=== PATIENT | female | born 1960 | race Caucasian/White ===

== ENCOUNTER 2017-12-08 09:11 | Inpatient (IN) | payer OTHER ==
[2017-12-08 12:55] VITALS: BMI 22.1
--- NOTE | 2017-12-08 12:59 | HP ---
COWS - Scale Resting Pulse: 1= [place] 81-100 Sweatin= Chills/Flushing Restless Observation: 3= Extraneous Movement Pupil Size: 1= Pupils >than Normal Bone or Joint Aches: 2= Severe Diffuse Aches Runny Nose/ Eye Tearin= Nasal Congestion GI Upset > 30mins: 2= Nausea/Diarrhea Tremor Observation: 2= Slight Tremor Visible Yawning Observation: 1= 1-2x During Session Anxiety or Irritability: 2=Irritable/Anxious Goose Flesh Skin: 3=Piloerection COWS Score: 19 Admission ROS S - [facility] Chief Complaint: opiate withdrawal sx Allergies/Adverse Reactions: Allergies Allergy/AdvReac Type Severity Reaction Status Date / Time No Known Allergies Allergy Verified 12/08/17 12:55 History of Present Illness: 57 years old female with long history of opiate nicotine dependence has hypertension anxiety and depression migraine headache one black out no seizure is admitted to detox smoke once a while Exam Limitations: No Limitations - Ebola screening Have you traveled outside of the country in the last 21 days: No Have you had contact with anyone from an Ebola affected area: No Have you been sick,other than usual withdrawal symptoms: No Do you have a fever: No - Review of Systems Constitutional: Loss of Appetite, Changes in sleep, Unintentional Wgt. Loss, Unexplained wgt Loss EENT: reports: Blurred Vision Respiratory: reports: No Symptoms reported Cardiac: reports: No Symptoms Reported GI: reports: Nausea, Poor Appetite, Poor Fluid Intake, Abdominal cramping : reports: No Symptoms Reported Musculoskeletal: reports: Back Pain, Joint Pain, Muscle Pain, Neck Pain, Joint Stiffness Integumentary: reports: No Symptoms Reported Neuro: reports: Tremors Endocrine: reports: No Symptoms Reported Hematology: reports: No Symptoms Reported Psychiatric: reports: Judgement Intact, Orientated x3, Anxious, Depressed Other Systems: Reviewed and Negative Patient History - Patient Medical History Hx Anemia: No Hx Asthma: No Hx Chronic Obstructive Pulmonary Disease (COPD): No Hx Cancer: No Hx Cardiac Disorders: No Hx Congestive Heart Failure: No Hx Hypertension: Yes Hx Hypercholesterolemia: No Hx Pacemaker: No HX Cerebrovascular Accident: No Hx Seizures: No Hx Dementia: No Hx Diabetes: No Hx Gastrointestinal Disorders: No Hx Liver Disease: No Hx Genitourinary Disorders: No Hx Sexually Transmitted Disorders: No Hx Renal Disease (ESRD): No Hx Thyroid Disease: No Hx Human Immunodeficiency Virus (HIV): No Hx Hepatitis C: No Hx Depression: Yes Hx Suicide Attempt: No Hx Bipolar Disorder: No Hx Schizophrenia: No - Patient Surgical History Past Surgical History: No - PPD History Previous Implant?: Yes Documented Results: Negative w/o proof Implanted On Prior [facility] Admission?: No PPD to be Administered?: Yes - Reproductive History Patient is a Female of Child Bearing Age (11 -55 yrs old): No Last Menstrual Period: 12/09/11 Patient : No - Smoking Cessation Smoking history: Current some day smoker Have you smoked in the past 12 months: Yes Aproximately how many cigarettes per day: 1 Cigars Per Day: 0 Hx Chewing Tobacco Use: No Initiated information on smoking cessation: Yes 'Breaking Loose' booklet given: 12/08/17 - Substance & Tx. History Hx Alcohol Use: No Hx Substance Use: Yes Substance Use Type: Opiates, Tranquilizers Hx Substance Use Treatment: Yes (2017benadictin) - Substances Abused oxycodone Route: Oral Frequency: Daily Amount used: 40mg Age of first use: 50 Date of Last Use: 12/06/17 Family Disease History - Family Disease History Family Disease History: Other: Father (/alcohol), Mother () Admission Physical Exam S - Vital Signs Vital Signs: Vital Signs - 24 hr 12/08/17 12:53 Temperature 97.3 F L Pulse Rate 85 Respiratory 18 Rate Blood Pressure 143/95 - Physical General Appearance: Yes: Appropriately Dressed, Mild Distress, Thin, Tremorous, Irritable, Sweating, Anxious HEENTM: Yes: Hearing grossly Normal, Normocephalic, Normal Voice Respiratory: Yes: Chest Non-Tender, Lungs Clear, Normal Breath Sounds, No Respiratory Distress, No Accessory Muscle Use Neck: Yes: Supple, Trachea in good position Breast: Yes: Breasts Symetrical, No Discharge Cardiology: Yes: Regular Rhythm, Regular Rate, S1, S2 Abdominal: Yes: Non Tender, Flat, Soft Genitourinary: Yes: Within Normal Limits Back: Yes: Normal Inspection Musculoskeletal: Yes: full range of Motion, Gait Steady, Back pain, Joint swelling, Muscle Pain Extremities: Yes: Normal Inspection (iv from hospital saline 12/07/17), Normal Range of Motion, Non-Tender, Tremors Neurological: Yes: Fully Oriented, Alert, Motor Strength 5/5, Normal Response, Depressed Affect Integumentary: Yes: Normal Color, Dry, Warm Lymphatic: Yes: Within Normal Limits - Diagnostic (1) Opioid dependence with withdrawal Current Visit: Yes Status: Acute (2) Hypertension Current Visit: Yes Status: Chronic Qualifiers: Hypertension type: essential hypertension Qualified Code(s): I10 - Essential (primary) hypertension (3) Anxiety and depression Current Visit: Yes Status: Suspected Cleared for Admission [facility] - Detox or Rehab [facility] Level of Care: Medically Managed Detox Regimen/Protocol: Methadone [facility] Breath Alcohol Content Breath Alcohol Content: 0 Urine Pregancy Test - Result Urine Test Results: Negative- NO Line Present Urine Drug Screen - Results Drug Screen Negative: No Urine Drug Screen Results: OPI-Opiates, BAR-Barbiturates, BZO-Benzodiazepines, OXY-Oxycodone
[2017-12-08] MEDS ORDERED: LOPERAMIDE HCL 2 MG CAPSULE PO PRN (13:08)
[2017-12-08] MEDS ORDERED: ACETAMINOPHEN 325 MG TABLET (FP) PO PRN (13:08)
[2017-12-08] MEDS ORDERED: MAGNESIUM CITRATE 300 ML BOTTLE PO PRN (13:08)
[2017-12-08] MEDS ORDERED: MAG HYDROX/AL HYDROX/SIMETH 30 ML UNIT-DOSE CUP PO PRN (13:08)
[2017-12-08] MEDS ORDERED: hydrOXYzine PAMOATE 50 MG CAPSULE (FP) PO PRN (13:08)
[2017-12-08] MEDS ORDERED: MENTHOL/PHENOL 1 EACH UD MM PRN (13:08)
[2017-12-08] MEDS ORDERED: P-EPHED 60MG/TRIPROLIDI 2.5MG TABLET PO PRN (13:08)
[2017-12-08] MEDS ORDERED: MAGNESIUM HYDROX 2400MG/30ML ORAL SUSPENSION 30 ML CUP PO PRN (13:08)
[2017-12-08] MEDS ORDERED: guaiFENesin/D-METHORPHAN HB 10 ML UNIT-DOSE CUPS PO PRN (13:08)
[2017-12-08] MEDS ORDERED: NICOTINE POLACRILEX 2 MG GUM BUC PRN (13:17)
[2017-12-08] MEDS ORDERED: NICOTINE 14 MG/24 HOURS TOPICAL PATCH TD PRN (13:17)
[2017-12-08] MEDS ORDERED: METHADONE HCL 10 MG TABLET (FOR DETOX USE ONLY) PO ONE ×2 (13:50→23:00)
[2017-12-08] MEDS: diazePAM 5 MG TABLET PO PRN ×3 (14:28→22:37)
[2017-12-08] MEDS: BACLOFEN 10 MG TABLET (FP) PO PRN ×2 (14:28→22:40)
[2017-12-08] MEDS: cloNIDine HCL 0.1 MG TABLET PO PRN (17:35)
[2017-12-08] MEDS: THIAMINE HCL 100 MG TABLET (FP) PO SCH (22:37)
[2017-12-09] MEDS: diazePAM 5 MG TABLET PO PRN ×4 (02:27→22:38)
[2017-12-09] MEDS: BACLOFEN 10 MG TABLET (FP) PO PRN ×3 (05:53→22:36)
[2017-12-09] MEDS ORDERED: METHADONE HCL 10 MG TABLET (FOR DETOX USE ONLY) PO ONE (10:00)
[2017-12-09 10:18] LABS: HEMATOCRIT 33.4 % (32.4-45.2); HEMOGLOBIN 10.9 GM/dL (10.7-15.3); MCH 30.7 pg (25.7-33.7); MCHC 32.5 g/dl (32.0-36.0); MEAN CELL VOLUME 94.4 fl (80-96); MEAN PLT VOLUME 8.2 fl (7.5-11.1); PLATELET COUNT 419 K/MM3 (134-434); RBC 3.54 M/mm3 (3.60-5.2); RDW 15.8 % (11.6-15.6); WHITE BLOOD COUNT 8.3 K/mm3 (4.0-10.0)
[2017-12-09] MEDS: PRENATAL VITAMINS W/ FOLIC ACID TABLET (FP) PO SCH (10:28)
[2017-12-09 10:34] LABS: CHLORIDE 104 mmol/L (98-107); POTASSIUM 4.1 mmol/L (3.5-5.1); SODIUM 141 mmol/L (136-145)
[2017-12-09 11:09] LABS: ALBUMIN 3.1 g/dl (3.4-5.0); ALK PHOS 163 U/L (45-117); ANION GAP 12 MMOL/L (8-16); BILIRUBIN,TOTAL 0.2 mg/dL (0.2-1); BLOOD UREA NITROGEN 14 mg/dL (7-18); CO2 25 mmol/L (21-32); CREATININE 0.7 mg/dL (0.55-1.3); GLUCOSE,RANDOM 83 mg/dL (74-106); SGOT/AST 22 U/L (15-37); SGPT/ALT 26 U/L (13-61); TOT PROT 6.6 g/dl (6.4-8.2)
[2017-12-09 11:23] LABS: CALCIUM 7.9 mg/dL (8.5-10.1)
--- NOTE | 2017-12-09 11:29 | CONSULT ---
[facility] Psychiatric Consult - Data Date of interview: 12/09/17 Admission source: [facility] Identifying data: Patient is a 57 year old female, , without children, unemployed, domiciled, and supported by [facility]. This is patient's first admission to detox at [facility]. Pt. admitted to for opiate dependence. Substance Abuse History: - Smoking Cessation. Smoking history: Current some day smoker. Have you smoked in the past 12 months: Yes. Aproximately how many cigarettes per day: 1. Cigars Per Day: 0. Hx Chewing Tobacco Use: No. Initiated information on smoking cessation: Yes. 'Breaking Loose' booklet given : 12/08/17. - Substance & Tx. History. Hx Alcohol Use: No. Hx Substance Use: Yes. Substance Use Type: Opiates, Tranquilizers. Hx Substance Use Treatment: Yes (2017benadictin). - Substances Abused. oxycodone. Route: Oral. Frequency: Daily. Amount used: 40mg. Age of first use: 50. Date of Last Use: 12/06/17 Medical History: hypertension. Psychiatric History: Patient's first psychiatric contact was at 25 years of age for worsening depression , amotivation, and lack of appeitite. As an adult patient reports being on trials of Cymbalta, gabapentin, depakote, zyprexa, and abilify, and tegretol. Patient reports four psychiatric hospitalizations, most recently in April 2017 for depression and anxiety at [facility]. She was prescribed abilify (unknown dose)+ Prozac 20mg. Outpatient psychiatric services is provided at [facility] in [place] by Dr. Mims. Pt. is currently prescribed prozac 30mg daily. No longer accepts abilify as patient states it was ineffective. Diagnosis of MDD and anxiety. Pt. denies h/o suicide attempt. Physical/Sexual Abuse/Trauma History: denies. Mental Status Exam - Mental Status Exam Alert and Oriented to: Time, Place, Person Cognitive Function: Good Patient Appearance: Well Groomed Mood: Hopeful, Euthymic Affect: Mood Congruent Patient Behavior: Appropriate, Cooperative Speech Pattern: Clear, Appropriate Voice Loudness: Normal Thought Process: Intact, Goal Oriented Thought Disorder: Not Present Hallucinations: Denies Suicidal Ideation: Denies Homicidal Ideation: Denies Insight/Judgement: Poor Sleep: Fair Appetite: Fair Muscle strength/Tone: Normal Gait/Station: Normal Psychiatric Findings - Problem List ([place] 1, 2,3) (1) Opioid dependence with withdrawal Current Visit: Yes Status: Acute (2) MDD (major depressive disorder) Current Visit: Yes Status: Chronic (3) Anxiety disorder Current Visit: Yes Status: Suspected (4) Substance induced mood disorder Current Visit: Yes Status: Acute - Initial Treatment Plan Initial Treatment Plan: Psychoeducation provided. Detoxification in progress. Will order prozac 30mg daily. Benefits and side effects discussed. Verbal consent given.
[2017-12-09] MEDS ORDERED: FLUoxetine HCL 20 MG CAPSULE (FP) PO SCH (11:45)
[2017-12-09] MEDS ORDERED: FLUoxetine HCL 20 MG CAPSULE (FP) ONE (12:11)
[2017-12-09] MEDS ORDERED: FLUoxetine HCL 10 MG CAPSULE (FP) ONE (12:12)
[2017-12-09] MEDS: FLUOXETINE HCL PO SCH (12:13)
--- NOTE | 2017-12-09 14:50 | PN ---
[facility]HS COWS - Scale Resting Pulse: 1= [place] 81-100 Sweatin= Chills/Flushing Restless Observation: 1= Difficult to Sit Still Pupil Size: 1= Pupils >than Normal Bone or Joint Aches: 2= Severe Diffuse Aches Runny Nose/ Eye Tearin= Nasal Congestion GI Upset > 30mins: 2= Nausea/Diarrhea Tremor Observation of Outstretched Hands: 2= Slight Tremor Visible Yawning Observation: 2= >3x During Session Anxiety or Irritability: 2=Irritable/Anxious Goose Flesh Skin: 0=Smooth Skin COWS Score: 15 BHS Progress Note (SOAP) Subjective: joints pain body ache muscle cramp running nose sweat tremor Objective: 12/09/17 14:49 Vital Signs Temperature 97.3 F L 12/09/17 14:03 Pulse Rate 106 H 12/09/17 14:03 Respiratory Rate 16 12/09/17 14:03 Blood Pressure 107/59 12/09/17 14:03 O2 Sat by Pulse Oximetry (%) Laboratory Last Values WBC 8.3 K/mm3 (4.0-10.0) 12/09/17 07:00 RBC 3.54 M/mm3 (3.60-5.2) L 12/09/17 07:00 Hgb 10.9 GM/dL (10.7-15.3) 12/09/17 07:00 Hct 33.4 % (32.4-45.2) 12/09/17 07:00 MCV 94.4 fl (80-96) 12/09/17 07:00 MCH 30.7 pg (25.7-33.7) 12/09/17 07:00 MCHC 32.5 g/dl (32.0-36.0) 12/09/17 07:00 RDW 15.8 % (11.6-15.6) H 12/09/17 07:00 Plt Count 419 K/MM3 (134-434) 12/09/17 07:00 MPV 8.2 fl (7.5-11.1) 12/09/17 07:00 Sodium 141 mmol/L (136-145) 12/09/17 07:00 Potassium 4.1 mmol/L (3.5-5.1) 12/09/17 07:00 Chloride 104 mmol/L (98-107) 12/09/17 07:00 Carbon Dioxide 25 mmol/L (21-32) 12/09/17 07:00 Anion Gap 12 MMOL/L (8-16) 12/09/17 07:00 BUN 14 mg/dL (7-18) 12/09/17 07:00 Creatinine 0.7 mg/dL (0.55-1.3) 12/09/17 07:00 Creat Clearance w eGFR > 60 (>60) 12/09/17 07:00 Random Glucose 83 mg/dL (74-106) 12/09/17 07:00 Calcium 7.9 mg/dL (8.5-10.1) L 12/09/17 07:00 Total Bilirubin 0.2 mg/dL (0.2-1) 12/09/17 07:00 AST 22 U/L (15-37) 12/09/17 07:00 ALT 26 U/L (13-61) 12/09/17 07:00 Alkaline Phosphatase 163 U/L (45-117) H 12/09/17 07:00 Total Protein 6.6 g/dl (6.4-8.2) 12/09/17 07:00 Albumin 3.1 g/dl (3.4-5.0) L 12/09/17 07:00 RPR Titer Nonreactive (NONREACTIVE) 12/09/17 07:00 lab noted Assessment: 12/09/17 14:50 withdrawal sx Plan: continue detox
--- NOTE | 2017-12-09 16:46 | EKG ---
Test Reason : Blood Pressure : / mmHG Vent. Rate : 108 BPM Atrial Rate : 108 BPM P-R Int : 142 ms QRS Dur : 074 ms QT Int : 362 ms P-R-T Axes : 077 078 074 degrees QTc Int : 485 ms SINUS TACHYCARDIA BIATRIAL ENLARGEMENT ABNORMAL ECG NO PREVIOUS ECGS AVAILABLE Confirmed by Narciso Camarillo ([id number]) on 12/09/2017 4:45:30 PM Referred By: Confirmed By:Narciso Camarillo
[2017-12-09] MEDS: cloNIDine HCL 0.1 MG TABLET PO PRN (17:02)
[2017-12-09] MEDS: THIAMINE HCL 100 MG TABLET (FP) PO SCH (22:35)
[2017-12-10] MEDS: diazePAM 5 MG TABLET PO PRN ×5 (03:12→23:05)
[2017-12-10] MEDS: BACLOFEN 10 MG TABLET (FP) PO PRN ×3 (06:16→22:32)
[2017-12-10] MEDS: cloNIDine HCL 0.1 MG TABLET PO PRN (06:16)
[2017-12-10] MEDS ORDERED: FLUoxetine HCL 10 MG CAPSULE (FP) ONE (08:44)
[2017-12-10] MEDS ORDERED: FLUoxetine HCL 20 MG CAPSULE (FP) ONE (08:44)
[2017-12-10] MEDS ORDERED: METHADONE HCL 5 MG TABLET (FOR DETOX USE ONLY) PO ONE (10:00)
[2017-12-10] MEDS: FLUOXETINE HCL PO SCH (10:51)
[2017-12-10] MEDS: PRENATAL VITAMINS W/ FOLIC ACID TABLET (FP) PO SCH (10:59)
[2017-12-10] MEDS: IBUPROFEN 400 MG TABLET (FP) PO PRN (11:48)
--- NOTE | 2017-12-10 12:00 | PN ---
BHS COWS - Scale Resting Pulse: 1= [place] 81-100 Sweatin= No chills or Flushing Restless Observation: 0= Sits Still Pupil Size: 0= Normal to Room Light Bone or Joint Aches: 0= None Runny Nose/ Eye Tearin= Runny Nose/Eyes GI Upset > 30mins: 0= None Tremor Observation of Outstretched Hands: 1= Tremor [place], Not Seen Yawning Observation: 0= None Anxiety or Irritability: 1=Feels Anxious/Irritable Goose Flesh Skin: 0=Smooth Skin COWS Score: 5 BHS Progress Note (SOAP) Subjective: C/o headache. Denies generalized bone pain. Feeling anxious. Some nausea earlier but getting better. No vomiting or diarrhea. . Objective: A&O x3. Abd S/NT/BS+. Mild tremors felt on hands. No sweating. Perforated nasal septum. Mild clear rhinorrhea. TM's intact w/o erythema or bulging. Vital Signs 12/10/17 12/10/17 09:55 14:04 Temperature 97.7 F 97.5 F L Pulse Rate 89 89 Respiratory 16 16 Rate Blood Pressure 118/68 128/63 Lab Results WBC 8.3 K/mm3 (4.0-10.0) 12/09/17 07:00 RBC 3.54 M/mm3 (3.60-5.2) L 12/09/17 07:00 Hgb 10.9 GM/dL (10.7-15.3) 12/09/17 07:00 Hct 33.4 % (32.4-45.2) 12/09/17 07:00 MCV 94.4 fl (80-96) 12/09/17 07:00 MCHC 32.5 g/dl (32.0-36.0) 12/09/17 07:00 RDW 15.8 % (11.6-15.6) H 12/09/17 07:00 Plt Count 419 K/MM3 (134-434) 12/09/17 07:00 Sodium 141 mmol/L (136-145) 12/09/17 07:00 Potassium 4.1 mmol/L (3.5-5.1) 12/09/17 07:00 Chloride 104 mmol/L (98-107) 12/09/17 07:00 Carbon Dioxide 25 mmol/L (21-32) 12/09/17 07:00 Anion Gap 12 MMOL/L (8-16) 12/09/17 07:00 BUN 14 mg/dL (7-18) 12/09/17 07:00 Creatinine 0.7 mg/dL (0.55-1.3) 12/09/17 07:00 Random Glucose 83 mg/dL (74-106) 12/09/17 07:00 Calcium 7.9 mg/dL (8.5-10.1) L 12/09/17 07:00 Labs reviewed. Assessment: Withdrawal symptoms Perforated nasal septum. Plan: Continue detox protocol. Ibuprofen as needed. Encourage 2 pitchers water daily.
[2017-12-10] MEDS: THIAMINE HCL 100 MG TABLET (FP) PO SCH (22:30)
[2017-12-11] MEDS: diazePAM 5 MG TABLET PO PRN ×2 (03:29→10:12)
[2017-12-11] MEDS: BACLOFEN 10 MG TABLET (FP) PO PRN ×2 (06:58→19:24)
[2017-12-11] MEDS: cloNIDine HCL 0.1 MG TABLET PO PRN ×2 (06:59→22:40)
[2017-12-11] MEDS ORDERED: FLUoxetine HCL 20 MG CAPSULE (FP) ONE (09:46)
[2017-12-11] MEDS ORDERED: FLUoxetine HCL 10 MG CAPSULE (FP) ONE (09:46)
[2017-12-11] MEDS ORDERED: METHADONE HCL 5 MG TABLET (FOR DETOX USE ONLY) PO ONE (10:00)
[2017-12-11] MEDS: FLUOXETINE HCL PO SCH (10:11)
[2017-12-11] MEDS: IBUPROFEN 400 MG TABLET (FP) PO PRN (10:11)
[2017-12-11] MEDS: PRENATAL VITAMINS W/ FOLIC ACID TABLET (FP) PO SCH (10:13)
[2017-12-11 10:28] LABS: URINE APPEARANCE CLEAR; URINE BILIRUBIN NEGATIVE (<2.0 mg/dL); URINE COLOR COLORLESS; URINE GLUCOSE (UA) NEGATIVE (NEGATIVE); URINE KETONE NEGATIVE (NEGATIVE); URINE LEUK ESTERASE NEGATIVE (NEGATIVE); URINE NITRITE NEGATIVE (NEGATIVE); URINE PROTEIN NEGATIVE (NEGATIVE); URINE UROBILINOGEN NEGATIVE mg/dL (0.2-1.0)
--- NOTE | 2017-12-11 14:11 | PN ---
[facility] Progress Note Note: Psychiatric nurse practitioner note: Mental status examination performed by handbook writer. Ms. Crawford is mildy alert and oriented X3 but presents as lethargic,drowsy,fatigue and is exhibiting an unsteady gait. 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 Pt. transferred to [facility] for for further medical evaluation.
--- NOTE | 2017-12-11 15:16 | PN ---
S Progress Note (SOAP) Subjective: joints pain body aches muscle cramping GI distress sweat tremor anxiety after 10 am medication patient appears to be drowsy slow speech, unsteady gait, c/o unbearable headache bp 114/69 81 temp 97, assist to bathroom and change clothe Objective: 12/11/17 15:15 Vital Signs Temperature 97.5 F L 12/11/17 10:19 Pulse Rate 89 12/11/17 10:19 Respiratory Rate 18 12/11/17 10:19 Blood Pressure 117/77 12/11/17 10:19 O2 Sat by Pulse Oximetry (%) Laboratory Last Values WBC 8.3 K/mm3 (4.0-10.0) 12/09/17 07:00 RBC 3.54 M/mm3 (3.60-5.2) L 12/09/17 07:00 Hgb 10.9 GM/dL (10.7-15.3) 12/09/17 07:00 Hct 33.4 % (32.4-45.2) 12/09/17 07:00 MCV 94.4 fl (80-96) 12/09/17 07:00 MCH 30.7 pg (25.7-33.7) 12/09/17 07:00 MCHC 32.5 g/dl (32.0-36.0) 12/09/17 07:00 RDW 15.8 % (11.6-15.6) H 12/09/17 07:00 Plt Count 419 K/MM3 (134-434) 12/09/17 07:00 MPV 8.2 fl (7.5-11.1) 12/09/17 07:00 Sodium 141 mmol/L (136-145) 12/09/17 07:00 Potassium 4.1 mmol/L (3.5-5.1) 12/09/17 07:00 Chloride 104 mmol/L (98-107) 12/09/17 07:00 Carbon Dioxide 25 mmol/L (21-32) 12/09/17 07:00 Anion Gap 12 MMOL/L (8-16) 12/09/17 07:00 BUN 14 mg/dL (7-18) 12/09/17 07:00 Creatinine 0.7 mg/dL (0.55-1.3) 12/09/17 07:00 Creat Clearance w eGFR > 60 (>60) 12/09/17 07:00 Random Glucose 83 mg/dL (74-106) 12/09/17 07:00 Calcium 7.9 mg/dL (8.5-10.1) L 12/09/17 07:00 Total Bilirubin 0.2 mg/dL (0.2-1) 12/09/17 07:00 AST 22 U/L (15-37) 12/09/17 07:00 ALT 26 U/L (13-61) 12/09/17 07:00 Alkaline Phosphatase 163 U/L (45-117) H 12/09/17 07:00 Total Protein 6.6 g/dl (6.4-8.2) 12/09/17 07:00 Albumin 3.1 g/dl (3.4-5.0) L 12/09/17 07:00 Urine Color Colorless 12/11/17 07:00 Urine Appearance Clear 12/11/17 07:00 Urine pH 7.0 (5.0-8.0) 12/11/17 07:00 Ur Specific [place] 1.004 (1.001-1.035) 12/11/17 07:00 Urine Protein Negative (NEGATIVE) 12/11/17 07:00 Urine Glucose (UA) Negative (NEGATIVE) 12/11/17 07:00 Urine Ketones Negative (NEGATIVE) 12/11/17 07:00 Urine Blood Negative (NEGATIVE) 12/11/17 07:00 Urine Nitrite Negative (NEGATIVE) 12/11/17 07:00 Urine Bilirubin Negative (<2.0 mg/dL) 12/11/17 07:00 Urine Urobilinogen Negative mg/dL (0.2-1.0) 12/11/17 07:00 Ur Leukocyte Esterase Negative (NEGATIVE) 12/11/17 07:00 RPR Titer Nonreactive (NONREACTIVE) 12/09/17 07:00 lab noted Assessment: 12/11/17 15:18 withdrawal sx 12/11/17 15:24 57 years old female admitted on 12/08/17 for opioid withdrawal sx the nurse concerns about the patient is drowsy pale slurred speech S1S2 RRR clear lung bilaterally abdomen soft + bs unsteady gait ambulance called information provided to ER Plan: continue detox
--- NOTE | 2017-12-11 19:30 | PN ---
[facility] Progress Note Note: Vital Signs Temperature 97.5 F L 12/11/17 19:15 Pulse Rate 78 12/11/17 19:15 Respiratory Rate 19 12/11/17 19:15 Blood Pressure 141/88 12/11/17 19:15 O2 Sat by Pulse Oximetry (%) Patient evaluated at the emergency department at [facility] for headache and weakness and returned today. CT head neg for intra cranial abnormalities, central atrophy without definitive e/o NPH. pain control with fluids, toradol, tylenol. no antiemetics given ND prolongation. given clonidine for w/d symptoms from opioid. Patient currently stable, continue detox continue to monitor
[2017-12-11] MEDS: THIAMINE HCL 100 MG TABLET (FP) PO SCH (22:40)
[2017-12-11] MEDS: MELATONIN 5 MG TABLETS PO PRN (22:41)
[2017-12-12] MEDS: BACLOFEN 10 MG TABLET (FP) PO PRN ×3 (06:07→20:09)
[2017-12-12] MEDS: IBUPROFEN 400 MG TABLET (FP) PO PRN ×2 (07:42→15:47)
[2017-12-12] MEDS ORDERED: FLUoxetine HCL 10 MG CAPSULE (FP) ONE (09:15)
[2017-12-12] MEDS ORDERED: FLUoxetine HCL 20 MG CAPSULE (FP) ONE (09:15)
[2017-12-12] MEDS ORDERED: METHADONE HCL 10 MG TABLET (FOR DETOX USE ONLY) PO ONE (10:00)
[2017-12-12] MEDS: FLUOXETINE HCL PO SCH (10:42)
[2017-12-12] MEDS: PRENATAL VITAMINS W/ FOLIC ACID TABLET (FP) PO SCH (10:43)
[2017-12-12] MEDS: cloNIDine HCL 0.1 MG TABLET PO PRN ×2 (10:45→20:09)
--- NOTE | 2017-12-12 14:03 | PN ---
[facility] Progress Note (SOAP) Subjective: PATIENT ANXIOUS AND CRYING AT BEDSIDE. STATES SHE HAS PANIC ATTACKS AND VISTARIL DOES NOT HELP SYMPTOMS. Laboratory Tests 12/09/17 12/09/17 12/09/17 07:00 07:00 07:00 WBC 8.3 RBC 3.54 L Hgb 10.9 Hct 33.4 MCV 94.4 MCH 30.7 MCHC 32.5 RDW 15.8 H Plt Count 419 MPV 8.2 Sodium 141 Potassium 4.1 Chloride 104 Carbon Dioxide 25 Anion Gap 12 BUN 14 Creatinine 0.7 Creat Clearance w eGFR > 60 Random Glucose 83 Calcium 7.9 L Total Bilirubin 0.2 AST 22 ALT 26 Alkaline Phosphatase 163 H Total Protein 6.6 Albumin 3.1 L Urine Color Urine Appearance Urine pH Ur Specific [place] Urine Protein Urine Glucose (UA) Urine Ketones Urine Blood Urine Nitrite Urine Bilirubin Urine Urobilinogen Ur Leukocyte Esterase RPR Titer Nonreactive 12/11/17 07:00 WBC RBC Hgb Hct MCV MCH MCHC RDW Plt Count MPV Sodium Potassium Chloride Carbon Dioxide Anion Gap BUN Creatinine Creat Clearance w eGFR Random Glucose Calcium Total Bilirubin AST ALT Alkaline Phosphatase Total Protein Albumin Urine Color Colorless Urine Appearance Clear Urine pH 7.0 Ur Specific [place] 1.004 Urine Protein Negative Urine Glucose (UA) Negative Urine Ketones Negative Urine Blood Negative Urine Nitrite Negative Urine Bilirubin Negative Urine Urobilinogen Negative Ur Leukocyte Esterase Negative RPR Titer Vital Signs Temperature 97.9 F 12/12/17 13:35 Pulse Rate 75 12/12/17 13:35 Respiratory Rate 20 12/12/17 13:35 Blood Pressure 120/59 L 12/12/17 13:35 O2 Sat by Pulse Oximetry (%) ALERT AND ORIENTED SKIN WARM AND DRY CAR S1S2 RESP CTA BL NEURO +PERRLA, CN [id number] GROSSLY INTACT A/P WITHDRAWAL SYNDROME ANXIETY CONTINUE DETOX REFERRED TO PSYCH FOR ANXIETY MANAGEMENT
[2017-12-12] MEDS: THIAMINE HCL 100 MG TABLET (FP) PO SCH (22:45)
[2017-12-12] MEDS: MELATONIN 5 MG TABLETS PO PRN (22:46)
[2017-12-13] MEDS: BACLOFEN 10 MG TABLET (FP) PO PRN ×3 (05:53→21:07)
[2017-12-13] MEDS ORDERED: METHADONE HCL 5 MG TABLET (FOR DETOX USE ONLY) PO ONE (06:00)
[2017-12-13] MEDS ORDERED: FLUoxetine HCL 10 MG CAPSULE (FP) ONE (08:20)
[2017-12-13] MEDS ORDERED: FLUoxetine HCL 20 MG CAPSULE (FP) ONE (08:20)
[2017-12-13] MEDS: FLUOXETINE HCL PO SCH (10:32)
[2017-12-13] MEDS: PRENATAL VITAMINS W/ FOLIC ACID TABLET (FP) PO SCH (10:32)
[2017-12-13] MEDS: IBUPROFEN 400 MG TABLET (FP) PO PRN ×2 (11:38→21:05)
--- NOTE | 2017-12-13 13:54 | DS ---
[facility] Detox Discharge Summary Admission Date: 12/08/17 Discharge Date: 12/13/17 - History Present History: Opioid Dependence Pertinent Past History: HTN, ROBYN, MDD and migraine headache - Physical Exam Results Vital Signs: Vital Signs Temperature 98.6 F 12/13/17 10:23 Pulse Rate 88 12/13/17 10:23 Respiratory Rate 18 12/13/17 10:23 Blood Pressure 94/54 L 12/13/17 10:23 O2 Sat by Pulse Oximetry (%) Pertinent Admission Physical Exam Findings: Withdrawal sx Laboratory Last Values WBC 8.3 K/mm3 (4.0-10.0) 12/09/17 07:00 RBC 3.54 M/mm3 (3.60-5.2) L 12/09/17 07:00 Hgb 10.9 GM/dL (10.7-15.3) 12/09/17 07:00 Hct 33.4 % (32.4-45.2) 12/09/17 07:00 MCV 94.4 fl (80-96) 12/09/17 07:00 MCH 30.7 pg (25.7-33.7) 12/09/17 07:00 MCHC 32.5 g/dl (32.0-36.0) 12/09/17 07:00 RDW 15.8 % (11.6-15.6) H 12/09/17 07:00 Plt Count 419 K/MM3 (134-434) 12/09/17 07:00 MPV 8.2 fl (7.5-11.1) 12/09/17 07:00 Sodium 141 mmol/L (136-145) 12/09/17 07:00 Potassium 4.1 mmol/L (3.5-5.1) 12/09/17 07:00 Chloride 104 mmol/L (98-107) 12/09/17 07:00 Carbon Dioxide 25 mmol/L (21-32) 12/09/17 07:00 Anion Gap 12 MMOL/L (8-16) 12/09/17 07:00 BUN 14 mg/dL (7-18) 12/09/17 07:00 Creatinine 0.7 mg/dL (0.55-1.3) 12/09/17 07:00 Creat Clearance w eGFR > 60 (>60) 12/09/17 07:00 Random Glucose 83 mg/dL (74-106) 12/09/17 07:00 Calcium 7.9 mg/dL (8.5-10.1) L 12/09/17 07:00 Total Bilirubin 0.2 mg/dL (0.2-1) 12/09/17 07:00 AST 22 U/L (15-37) 12/09/17 07:00 ALT 26 U/L (13-61) 12/09/17 07:00 Alkaline Phosphatase 163 U/L (45-117) H 12/09/17 07:00 Total Protein 6.6 g/dl (6.4-8.2) 12/09/17 07:00 Albumin 3.1 g/dl (3.4-5.0) L 12/09/17 07:00 Urine Color Colorless 12/11/17 07:00 Urine Appearance Clear 12/11/17 07:00 Urine pH 7.0 (5.0-8.0) 12/11/17 07:00 Ur Specific [place] 1.004 (1.001-1.035) 12/11/17 07:00 Urine Protein Negative (NEGATIVE) 12/11/17 07:00 Urine Glucose (UA) Negative (NEGATIVE) 12/11/17 07:00 Urine Ketones Negative (NEGATIVE) 12/11/17 07:00 Urine Blood Negative (NEGATIVE) 12/11/17 07:00 Urine Nitrite Negative (NEGATIVE) 12/11/17 07:00 Urine Bilirubin Negative (<2.0 mg/dL) 12/11/17 07:00 Urine Urobilinogen Negative mg/dL (0.2-1.0) 12/11/17 07:00 Ur Leukocyte Esterase Negative (NEGATIVE) 12/11/17 07:00 RPR Titer Nonreactive (NONREACTIVE) 12/09/17 07:00 Labs noted - Treatment Hospital Course: Detox Protocol Followed, Detoxed Safely, Responded well, Discharged Condition Good - Medication Discharge Medications: Ambulatory Orders Fluoxetine HCl [Prozac -] 40 mg PO DAILY 12/08/17 Propranolol HCl 20 mg PO TID 12/08/17 - Diagnosis (1) Opioid dependence with withdrawal Current Visit: Yes Status: Acute (2) Hypertension Current Visit: Yes Status: Chronic Qualifiers: Hypertension type: essential hypertension Qualified Code(s): I10 - Essential (primary) hypertension (3) Anxiety disorder Current Visit: Yes Status: Suspected Qualifiers: Anxiety disorder type: generalized anxiety disorder Qualified Code(s): F41.1 - Generalized anxiety disorder - AMA Did Patient Leave Against Medical Advice: No
[2017-12-13] MEDS: cloNIDine HCL 0.1 MG TABLET PO PRN ×2 (15:37→21:06)
--- NOTE | 2017-12-13 15:41 | PN ---
S Progress Note Note: Psychiatric nurse practitioner sanitation manager note: Pt. transferred to . Chart reviewed. Pt. to remain on Prozac 30mg daily.
[2017-12-13] MEDS: THIAMINE HCL 100 MG TABLET (FP) PO SCH (21:06)
--- NOTE | 2017-12-13 21:56 | PN ---
[facility] Progress Note Note: Psychiatric nurse practitioner concrete engineering technician note: RN reports patient was c/o worsening anxiety. Chart reviewed. Will order vistaril 50mg q4h.
[2017-12-14] MEDS: BACLOFEN 10 MG TABLET (FP) PO PRN ×2 (06:52→16:05)
[2017-12-14] MEDS ORDERED: FLUoxetine HCL 10 MG CAPSULE (FP) ONE (08:31)
[2017-12-14] MEDS ORDERED: FLUoxetine HCL 20 MG CAPSULE (FP) ONE (08:31)
[2017-12-14] MEDS: IBUPROFEN 400 MG TABLET (FP) PO PRN ×2 (08:57→18:01)
[2017-12-14] MEDS: PRENATAL VITAMINS W/ FOLIC ACID TABLET (FP) PO SCH (10:28)
[2017-12-14] MEDS: FLUOXETINE HCL PO SCH (10:28)
[2017-12-14] MEDS: hydrOXYzine PAMOATE 50 MG CAPSULE (FP) PO PRN (10:29)
[2017-12-14] MEDS: cloNIDine HCL 0.1 MG TABLET PO PRN ×2 (10:32→19:15)
[2017-12-14] MEDS ORDERED: PT OWN MED DRAWER 7, Y5N ONE (13:17)
[2017-12-14] MEDS: THIAMINE HCL 100 MG TABLET (FP) PO SCH (21:29)
[2017-12-15] MEDS: BACLOFEN 10 MG TABLET (FP) PO PRN ×3 (01:43→19:16)
[2017-12-15] MEDS: IBUPROFEN 400 MG TABLET (FP) PO PRN ×2 (01:44→09:01)
[2017-12-15] MEDS ORDERED: FLUoxetine HCL 20 MG CAPSULE (FP) ONE (08:40)
[2017-12-15] MEDS ORDERED: FLUoxetine HCL 10 MG CAPSULE (FP) ONE (08:40)
[2017-12-15] MEDS: FLUOXETINE HCL PO SCH (09:01)
[2017-12-15] MEDS: PRENATAL VITAMINS W/ FOLIC ACID TABLET (FP) PO SCH (09:01)
[2017-12-15] MEDS: cloNIDine HCL 0.1 MG TABLET PO PRN (09:04)
[2017-12-15] MEDS ORDERED: PT OWN MED DRAWER 7, Y5N ONE ×2 (13:53→19:04)
--- NOTE | 2017-12-15 14:03 | HP ---
Psychiatrist Admission - Data Date of interview: 12/15/17 Admission source: [address] [place] [address] Identifying data: This is the first admission to [address] [place] [address] this 57 years old caucasisan female childless, resides alone supported by SSD. Medical History: Significant for HTN. Psychiatric History: patient reports first contact with psychiatrist at 25 years old when she was admitted to [facility] due manic episode, bizarre delusions that she killed somebody then severe depression,anxiety,mood instability.She was dx with Bipolar disorder and placed on Depakote,Risperidone with good response.She reports 4 more psychiatric hospitalizations,most recent was in Apr 2017 to [facility] due to depression,drug use.Currently sees at [facility].She is on Prozac 30 mg po daily,Propranolol 20 mg po prn for anxiety. Physical/Sexual Abuse/Trauma History: denies Vital Signs: Vital Signs - 24 hr 12/14/17 12/15/17 12/15/17 22:15 00:30 03:30 Temperature Pulse Rate 67 Respiratory 18 18 Rate Blood Pressure 115/79 12/15/17 12/15/17 07:10 09:30 Temperature 97.2 F L Pulse Rate 67 76 Respiratory 16 18 Rate Blood Pressure 125/82 125/83 Allergies/Adverse Reactions: Allergies Allergy/AdvReac Type Severity Reaction Status Date / Time metoclopramide [From Reglan] Allergy Intermediate Verified 12/13/17 12:54 Date of last physical exam: 12/13/17 Concur with the findings of this exam: Yes - Substance Abuse/Tx History Hx Alcohol Use: No Hx Substance Use: Yes (oxycodone 40 mg po daily since 50 yo) Substance Use Type: Opiates Hx Substance Use Treatment: Yes (this is her first inpatient treatment,longest abstinence 7 months) Mental Status Exam - Mental Status Exam Alert and Oriented to: Time, Place, Person Cognitive Function: Grossly Intact Patient Appearance: Unkempt Mood: Sad, Anxious Affect: Mood Congruent, Labile Patient Behavior: Cooperative Speech Pattern: Clear Voice Loudness: Normal Thought Process: Goal Oriented Thought Disorder: Not Present Hallucinations: Denies Suicidal Ideation: Denies Homicidal Ideation: Denies Insight/Judgement: Fair Sleep: Fair Appetite: Fair Muscle strength/Tone: Normal Gait/Station: Normal Psychiatric Findings - Problem List ([place] 1, 2,3) (1) Substance induced mood disorder Current Visit: Yes Status: Chronic (2) Acquired nasal deformity excluding deviated septum Current Visit: Yes Status: Chronic (3) Hypertension Current Visit: Yes Status: Chronic Qualifiers: Hypertension type: essential hypertension Qualified Code(s): I10 - Essential (primary) hypertension (4) Bipolar disorder Current Visit: Yes Status: Chronic - Initial Treatment Plan Initial Treatment Plan: Continue Prozac 30 mg po daily. will monitor progress.
--- NOTE | 2017-12-15 14:08 | PN ---
[facility] Progress Note Note: Vital Signs Temperature 97.2 F L 12/15/17 07:10 Pulse Rate 76 12/15/17 09:30 Respiratory Rate 18 12/15/17 09:30 Blood Pressure 125/83 12/15/17 09:30 O2 Sat by Pulse Oximetry (%) Patient requested to start suboxone therapy reports prior treatment out patient "years ago." c/o of feeling restless, anxious, difficulty sleeping, opioid craving. Patient with long history of opioid dependence. Completed detox at [facility] 12/08/17 - 12/13/17. I-stop review no prior hx of suboxone therapy. 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
[2017-12-15] MEDS: BUPRENORPHINE/NALOXONE 2 MG/0.5 MG FILM PACKET SL SCH (14:39)
[2017-12-15] MEDS: IBUPROFEN 600 MG TABLET (FP) PO PRN (19:15)
[2017-12-15] MEDS: THIAMINE HCL 100 MG TABLET (FP) PO SCH (21:29)
[2017-12-16] MEDS: IBUPROFEN 600 MG TABLET (FP) PO PRN ×2 (04:25→17:53)
[2017-12-16] MEDS ORDERED: PT OWN MED DRAWER 7, Y5N ONE ×2 (06:01→19:38)
[2017-12-16] MEDS: BACLOFEN 10 MG TABLET (FP) PO PRN ×3 (06:24→21:02)
[2017-12-16] MEDS ORDERED: FLUoxetine HCL 10 MG CAPSULE (FP) ONE (08:49)
[2017-12-16] MEDS ORDERED: FLUoxetine HCL 20 MG CAPSULE (FP) ONE (08:49)
[2017-12-16] MEDS: BUPRENORPHINE/NALOXONE 2 MG/0.5 MG FILM PACKET SL SCH (09:11)
[2017-12-16] MEDS: PRENATAL VITAMINS W/ FOLIC ACID TABLET (FP) PO SCH (09:11)
[2017-12-16] MEDS: FLUOXETINE HCL PO SCH (09:11)
[2017-12-16] MEDS: cloNIDine HCL 0.1 MG TABLET PO PRN (10:17)
[2017-12-16] MEDS: THIAMINE HCL 100 MG TABLET (FP) PO SCH (21:02)
[2017-12-17] MEDS: BACLOFEN 10 MG TABLET (FP) PO PRN ×3 (06:23→23:04)
[2017-12-17] MEDS: IBUPROFEN 600 MG TABLET (FP) PO PRN ×3 (06:23→21:09)
[2017-12-17] MEDS ORDERED: FLUoxetine HCL 10 MG CAPSULE (FP) ONE (09:06)
[2017-12-17] MEDS ORDERED: FLUoxetine HCL 20 MG CAPSULE (FP) ONE (09:06)
[2017-12-17] MEDS: FLUOXETINE HCL PO SCH (10:15)
[2017-12-17] MEDS: BUPRENORPHINE/NALOXONE 2 MG/0.5 MG FILM PACKET SL SCH (10:15)
[2017-12-17] MEDS: PRENATAL VITAMINS W/ FOLIC ACID TABLET (FP) PO SCH (10:16)
--- NOTE | 2017-12-17 13:15 | PN ---
[facility] Progress Note Note: Vital Signs Temperature 98.5 F 12/17/17 06:53 Pulse Rate 82 12/17/17 09:35 Respiratory Rate 16 12/17/17 06:53 Blood Pressure 115/73 12/17/17 09:35 O2 Sat by Pulse Oximetry (%) Patient requested Suboxone to be given at 6Am instead of afternoon. Medication time adjusted starting tomorrow AM. continue to monitor
[2017-12-17] MEDS ORDERED: PT OWN MED DRAWER 7, Y5N ONE (18:49)
[2017-12-17] MEDS: MELATONIN 5 MG TABLETS PO PRN (21:10)
[2017-12-17] MEDS: THIAMINE HCL 100 MG TABLET (FP) PO SCH (21:10)
[2017-12-18] MEDS ORDERED: PT OWN MED DRAWER 7, Y5N ONE ×4 (03:31→19:56)
[2017-12-18] MEDS: BUPRENORPHINE/NALOXONE 2 MG/0.5 MG FILM PACKET SL SCH ×2 (06:10→10:21)
[2017-12-18] MEDS: BACLOFEN 10 MG TABLET (FP) PO PRN ×3 (06:39→21:13)
[2017-12-18] MEDS: IBUPROFEN 600 MG TABLET (FP) PO PRN ×3 (06:39→21:14)
[2017-12-18] MEDS ORDERED: FLUoxetine HCL 10 MG CAPSULE (FP) ONE (08:30)
[2017-12-18] MEDS ORDERED: FLUoxetine HCL 20 MG CAPSULE (FP) ONE (08:30)
[2017-12-18] MEDS: FLUOXETINE HCL PO SCH (10:21)
[2017-12-18] MEDS: PRENATAL VITAMINS W/ FOLIC ACID TABLET (FP) PO SCH (10:21)
[2017-12-18] MEDS: hydrOXYzine PAMOATE 50 MG CAPSULE (FP) PO PRN (11:12)
[2017-12-18] MEDS: THIAMINE HCL 100 MG TABLET (FP) PO SCH (21:13)
[2017-12-19] MEDS: BACLOFEN 10 MG TABLET (FP) PO PRN ×3 (06:22→22:34)
[2017-12-19] MEDS: IBUPROFEN 600 MG TABLET (FP) PO PRN ×3 (06:22→22:34)
[2017-12-19] MEDS: BUPRENORPHINE/NALOXONE 2 MG/0.5 MG FILM PACKET SL SCH (06:23)
[2017-12-19] MEDS ORDERED: PT OWN MED DRAWER 7, Y5N ONE ×2 (07:52→20:26)
[2017-12-19] MEDS ORDERED: FLUoxetine HCL 10 MG CAPSULE (FP) ONE (08:50)
[2017-12-19] MEDS: FLUOXETINE HCL PO SCH (10:18)
[2017-12-19] MEDS: PRENATAL VITAMINS W/ FOLIC ACID TABLET (FP) PO SCH (10:18)
[2017-12-19] MEDS: THIAMINE HCL 100 MG TABLET (FP) PO SCH (21:07)
[2017-12-19] MEDS: MELATONIN 5 MG TABLETS PO PRN (22:35)
[2017-12-20] MEDS ORDERED: PT OWN MED DRAWER 7, Y5N ONE ×2 (06:08→13:05)
[2017-12-20] MEDS: IBUPROFEN 600 MG TABLET (FP) PO PRN ×3 (06:17→18:32)
[2017-12-20] MEDS: BACLOFEN 10 MG TABLET (FP) PO PRN ×3 (06:17→21:43)
[2017-12-20] MEDS: BUPRENORPHINE/NALOXONE 2 MG/0.5 MG FILM PACKET SL SCH (06:18)
[2017-12-20] MEDS ORDERED: FLUoxetine HCL 20 MG CAPSULE (FP) ONE (08:54)
[2017-12-20] MEDS ORDERED: FLUoxetine HCL 10 MG CAPSULE (FP) ONE (08:54)
[2017-12-20] MEDS: PRENATAL VITAMINS W/ FOLIC ACID TABLET (FP) PO SCH (09:58)
[2017-12-20] MEDS: FLUOXETINE HCL PO SCH (09:58)
[2017-12-20] MEDS: cloNIDine HCL 0.1 MG TABLET PO PRN (13:54)
[2017-12-20] MEDS: THIAMINE HCL 100 MG TABLET (FP) PO SCH (21:43)
[2017-12-20] MEDS: MELATONIN 5 MG TABLETS PO PRN (21:44)
[2017-12-20] MEDS: hydrOXYzine PAMOATE 50 MG CAPSULE (FP) PO PRN (21:44)
[2017-12-21] MEDS: IBUPROFEN 600 MG TABLET (FP) PO PRN ×3 (04:28→18:31)
[2017-12-21] MEDS ORDERED: PT OWN MED DRAWER 7, Y5N ONE ×3 (05:57→19:56)
[2017-12-21] MEDS: BUPRENORPHINE/NALOXONE 2 MG/0.5 MG FILM PACKET SL SCH (06:19)
[2017-12-21] MEDS: BACLOFEN 10 MG TABLET (FP) PO PRN ×2 (06:19→13:40)
[2017-12-21] MEDS ORDERED: FLUoxetine HCL 20 MG CAPSULE (FP) ONE (08:58)
[2017-12-21] MEDS ORDERED: FLUoxetine HCL 10 MG CAPSULE (FP) ONE (08:58)
[2017-12-21] MEDS: FLUOXETINE HCL PO SCH (09:27)
[2017-12-21] MEDS: PRENATAL VITAMINS W/ FOLIC ACID TABLET (FP) PO SCH (09:28)
[2017-12-21] MEDS: cloNIDine HCL 0.1 MG TABLET PO PRN (11:13)
[2017-12-21] MEDS: hydrOXYzine PAMOATE 50 MG CAPSULE (FP) PO PRN (18:31)
[2017-12-21] MEDS ORDERED: CYCLOBENZAPRINE HCL 5 MG TABLET PO ONE (18:49)
--- NOTE | 2017-12-21 18:57 | PN ---
[facility] Progress Note Note: patient is anxious,feel dizzy pain in the right chest no sob alert anxious heart normal heart sound,s1s2 lung no wheezing no abdominal pain no calf tenderness impression myalgia anxiety ekg sinus bradycardia 58/min,qt/qtc 480/471 treatment close monitoring flexeril 5 mgs po Vital Signs Temperature 97.9 F 12/21/17 07:20 Pulse Rate 80 12/21/17 14:15 Respiratory Rate 18 12/21/17 07:20 Blood Pressure 98/64 12/21/17 14:15 O2 Sat by Pulse Oximetry (%) this morning repeat vital sign bp 137/86,096,r20 continue monitoring
[2017-12-21] MEDS: MELATONIN 5 MG TABLETS PO PRN (21:45)
[2017-12-21] MEDS: THIAMINE HCL 100 MG TABLET (FP) PO SCH (21:45)
[2017-12-22] MEDS: IBUPROFEN 600 MG TABLET (FP) PO PRN ×2 (05:02→13:34)
[2017-12-22] MEDS ORDERED: PT OWN MED DRAWER 7, Y5N ONE ×2 (05:45→13:32)
[2017-12-22] MEDS: BUPRENORPHINE/NALOXONE 2 MG/0.5 MG FILM PACKET SL SCH (06:06)
[2017-12-22] MEDS: BACLOFEN 10 MG TABLET (FP) PO PRN ×2 (06:06→13:33)
[2017-12-22] MEDS ORDERED: FLUoxetine HCL 10 MG CAPSULE (FP) ONE (09:13)
[2017-12-22] MEDS: FLUOXETINE HCL PO SCH (10:11)
[2017-12-22] MEDS: PRENATAL VITAMINS W/ FOLIC ACID TABLET (FP) PO SCH (10:11)
[2017-12-22] MEDS: hydrOXYzine PAMOATE 50 MG CAPSULE (FP) PO PRN ×2 (10:13→21:25)
--- NOTE | 2017-12-22 13:52 | PN ---
[facility] Progress Note Note: Vital Signs Temperature 97.4 F L 12/22/17 06:53 Pulse Rate 65 12/22/17 10:00 Respiratory Rate 18 12/22/17 06:53 Blood Pressure 108/68 12/22/17 10:00 O2 Sat by Pulse Oximetry (%) Laboratory Last Values WBC 8.3 K/mm3 (4.0-10.0) 12/09/17 07:00 RBC 3.54 M/mm3 (3.60-5.2) L 12/09/17 07:00 Hgb 10.9 GM/dL (10.7-15.3) 12/09/17 07:00 Hct 33.4 % (32.4-45.2) 12/09/17 07:00 MCV 94.4 fl (80-96) 12/09/17 07:00 MCH 30.7 pg (25.7-33.7) 12/09/17 07:00 MCHC 32.5 g/dl (32.0-36.0) 12/09/17 07:00 RDW 15.8 % (11.6-15.6) H 12/09/17 07:00 Plt Count 419 K/MM3 (134-434) 12/09/17 07:00 MPV 8.2 fl (7.5-11.1) 12/09/17 07:00 Sodium 141 mmol/L (136-145) 12/09/17 07:00 Potassium 4.1 mmol/L (3.5-5.1) 12/09/17 07:00 Chloride 104 mmol/L (98-107) 12/09/17 07:00 Carbon Dioxide 25 mmol/L (21-32) 12/09/17 07:00 Anion Gap 12 MMOL/L (8-16) 12/09/17 07:00 BUN 14 mg/dL (7-18) 12/09/17 07:00 Creatinine 0.7 mg/dL (0.55-1.3) 12/09/17 07:00 Creat Clearance w eGFR > 60 (>60) 12/09/17 07:00 Random Glucose 83 mg/dL (74-106) 12/09/17 07:00 Calcium 7.9 mg/dL (8.5-10.1) L 12/09/17 07:00 Total Bilirubin 0.2 mg/dL (0.2-1) 12/09/17 07:00 AST 22 U/L (15-37) 12/09/17 07:00 ALT 26 U/L (13-61) 12/09/17 07:00 Alkaline Phosphatase 163 U/L (45-117) H 12/09/17 07:00 Total Protein 6.6 g/dl (6.4-8.2) 12/09/17 07:00 Albumin 3.1 g/dl (3.4-5.0) L 12/09/17 07:00 Urine Color Colorless 12/11/17 07:00 Urine Appearance Clear 12/11/17 07:00 Urine pH 7.0 (5.0-8.0) 12/11/17 07:00 Ur Specific [place] 1.004 (1.001-1.035) 12/11/17 07:00 Urine Protein Negative (NEGATIVE) 12/11/17 07:00 Urine Glucose (UA) Negative (NEGATIVE) 12/11/17 07:00 Urine Ketones Negative (NEGATIVE) 12/11/17 07:00 Urine Blood Negative (NEGATIVE) 12/11/17 07:00 Urine Nitrite Negative (NEGATIVE) 12/11/17 07:00 Urine Bilirubin Negative (<2.0 mg/dL) 12/11/17 07:00 Urine Urobilinogen Negative mg/dL (0.2-1.0) 12/11/17 07:00 Ur Leukocyte Esterase Negative (NEGATIVE) 12/11/17 07:00 RPR Titer Nonreactive (NONREACTIVE) 12/09/17 07:00 patient reports baclofen is not helping with her back pain at this time causes vertigo. Patient reports the one time dose of flexeril helped with her pain and vertigo. Reports taking meclazine in the past which helped with her vertigo symptoms. patient Aox3 no distress no adventitious breath sounds skin intact full ROM ambulating in the unit, chronic back pain Plan: meclazine prn re: vertigo baclofen changed to flexeril TID increase po fluids continue to monitor
--- NOTE | 2017-12-22 14:36 | PN ---
Psychiatric Progress Note Vital Signs: Vital Signs Period Temp Pulse Resp BP Sys/Soliman Pulse Ox Last 24 Hr 97.4 F 65-96 -18 108-137/68-86 Date of Session: 12/22/17 Chief Complaint:: Jordan very nervious,feeling like all over the places,restless. HPI: patient addressed opioid dependence comorbid with Bipolar disorder. ROS: HTN,Vertigo,Low back pain. Current Medications: Active Medications Generic Name Dose Route Start Last Admin Trade Name Freq PRN Reason Stop Dose Admin Acetaminophen 650 mg 12/08/17 13:08 Tylenol - PO Q4H PRN FEVER Al Hydroxide/Mg Hydroxide 30 ml 12/08/17 13:08 Mylanta Oral Suspension - PO Q6H PRN DYSPEPSIA Amitriptyline HCl 25 mg 12/22/17 14:20 Elavil - PO QID PRN ANXIETY Buprenorphine/Naloxone 2 each 12/19/17 06:00 12/22/17 06:06 Suboxone 2mg/0.5mg Sl Film - SL 12/24/17 05:59 2 each DAILY@0600 BALAJI Administration Clonidine 0.1 mg 12/08/17 13:15 12/21/17 11:13 Catapres - PO 0.1 mg BID PRN Administration WITHDRAWAL(CONT SUBST) Cyclobenzaprine HCl 5 mg 12/22/17 14:00 Cyclobenzaprine Hcl PO TID BALAJI Eucalyptus/Menthol/Phenol/Sorbitol 1 each 12/08/17 13:08 Cepastat Lozenge - MM Q4H PRN SORE THROAT Fluoxetine HCl 20 mg/ 30 mg 12/09/17 11:45 12/22/17 10:11 Fluoxetine HCl 10 mg PO 30 mg DAILY BALAJI Administration Guaifenesin 10 ml 12/08/17 13:08 Robitussin Dm - PO Q6H PRN COUGH Hydroxyzine Pamoate 50 mg 12/13/17 21:46 12/22/17 10:13 Vistaril - PO 50 mg Q4H PRN Administration ANXIETY Ibuprofen 600 mg 12/15/17 14:09 12/22/17 13:34 Motrin - PO 600 mg TID PRN Administration PAIN LEVEL 6-10 Loperamide HCl 4 mg 12/08/17 13:08 Imodium - PO Q6H PRN DIARRHEA Magnesium Citrate 300 ml 12/08/17 13:08 Citroma - PO Q48H PRN CONSTIPATION Magnesium Hydroxide 30 ml 12/08/17 13:08 Milk Of Magnesia - PO DAILY PRN CONSTIPATION Meclizine HCl 12.5 mg 12/22/17 13:48 Antivert - PO Q6H PRN VERTIGO Melatonin 5 mg 12/16/17 13:46 12/21/17 21:45 Melatonin PO 5 mg HS PRN Administration INSOMNIA Nicotine 14 mg 12/08/17 13:17 Nicoderm Patch - TD DAILY PRN WITHDRAWAL(CONT SUBST) Nicotine Polacrilex 2 mg 12/08/17 13:17 Nicorette Gum - BUC Q2H PRN NICOTINE REPLACEMENT RX Multivit/Folic Acid/Iron 1 tab 12/09/17 10:00 12/22/17 10:11 Vitamins (Sjr) - PO 1 tab DAILY BALAJI Administration Propranolol HCl 20 mg 12/08/17 14:00 12/22/17 13:34 Inderal - PO 20 mg TID BALAJI Administration Pseudoephedrine/Triprolidine 1 combo 12/08/17 13:08 Actifed - PO TID PRN NASAL CONGESTION Thiamine HCl 100 mg 12/08/17 22:00 12/21/17 21:45 Vitamin B1 - PO 100 mg HS BALAJI Administration Current Side Effect: No Lab tests ordered: No Lab tests reviewed: Yes Provider note:: Chart was revuewed,met with the patient .She addressed ongoing depressed mood ,anxiety,restlessness.Treatment plan including medications has been discussed with the patient. Properties of Elavil (benefits,side effects, dose adustment) has been discussed as well.Patient is willing to start Elavil 25 mg po as needed. Supportive therapy provided including discussion of relaxation techniques. Total face to face time:: 30 Mental Status Exam - Mental Status Exam Alert and Oriented to: Time, Place, Person Cognitive Function: Grossly Intact Patient Appearance: Unkempt Mood: Sad, Anxious Affect: Labile Patient Behavior: Restless, Cooperative Speech Pattern: Clear Voice Loudness: Normal Thought Process: Goal Oriented Thought Disorder: Not Present Hallucinations: Denies Suicidal Ideation: Denies Homicidal Ideation: Denies Insight/Judgement: Fair Sleep: Fair Appetite: Fair Muscle strength/Tone: Normal Gait/Station: Normal Psychiatric Treatment Plan - Problem List (1) Substance induced mood disorder Current Visit: Yes (2) Acquired nasal deformity excluding deviated septum Current Visit: Yes (3) Hypertension Current Visit: Yes Qualifiers: Hypertension type: essential hypertension Qualified Code(s): I10 - Essential (primary) hypertension (4) Bipolar disorder Current Visit: Yes (5) Opioid dependence Current Visit: Yes (6) Chronic back pain Current Visit: Yes (7) Vertigo Current Visit: Yes
[2017-12-22] MEDS: CYCLOBENZAPRINE HCL 5 MG TABLET PO SCH ×2 (14:47→21:25)
[2017-12-22] MEDS: MECLIZINE HCL 12.5 MG TABLET PO PRN (14:49)
[2017-12-22] MEDS: AMITRIPTYLINE HCL 25 MG TABLET (FP) PO PRN ×2 (14:50→19:06)
[2017-12-22] MEDS: THIAMINE HCL 100 MG TABLET (FP) PO SCH (21:25)
[2017-12-22] MEDS: MELATONIN 5 MG TABLETS PO PRN (21:26)
[2017-12-23] MEDS ORDERED: PT OWN MED DRAWER 7, Y5N ONE ×2 (03:27→19:30)
[2017-12-23] MEDS: CYCLOBENZAPRINE HCL 5 MG TABLET PO SCH ×3 (06:25→22:19)
[2017-12-23] MEDS: IBUPROFEN 600 MG TABLET (FP) PO PRN ×3 (06:25→18:57)
[2017-12-23] MEDS: BUPRENORPHINE/NALOXONE 2 MG/0.5 MG FILM PACKET SL SCH (06:26)
[2017-12-23] MEDS ORDERED: FLUoxetine HCL 10 MG CAPSULE (FP) ONE (08:28)
[2017-12-23] MEDS ORDERED: FLUoxetine HCL 20 MG CAPSULE (FP) ONE (08:29)
[2017-12-23] MEDS: MECLIZINE HCL 12.5 MG TABLET PO PRN (08:30)
[2017-12-23] MEDS: PRENATAL VITAMINS W/ FOLIC ACID TABLET (FP) PO SCH (10:37)
[2017-12-23] MEDS: FLUOXETINE HCL PO SCH (10:38)
--- NOTE | 2017-12-23 11:08 | EKG ---
Test Reason : Blood Pressure : / mmHG Vent. Rate : 058 BPM Atrial Rate : 058 BPM P-R Int : 132 ms QRS Dur : 084 ms QT Int : 480 ms P-R-T Axes : 065 072 069 degrees QTc Int : 471 ms SINUS BRADYCARDIA POSSIBLE LEFT ATRIAL ENLARGEMENT BORDERLINE ECG WHEN COMPARED WITH ECG OF 11-DEC-2017 16:15, NO SIGNIFICANT CHANGE WAS FOUND Confirmed by Marty Fatima MD ([id number]) on 12/23/2017 11:07:24 AM Referred By: Confirmed By:Marty Fatima MD
[2017-12-23] MEDS: AMITRIPTYLINE HCL 25 MG TABLET (FP) PO PRN (17:30)
[2017-12-23] MEDS: THIAMINE HCL 100 MG TABLET (FP) PO SCH (21:04)
[2017-12-23] MEDS: MELATONIN 5 MG TABLETS PO PRN (21:05)
[2017-12-23] MEDS: hydrOXYzine PAMOATE 50 MG CAPSULE (FP) PO PRN (21:05)
[2017-12-24] MEDS ORDERED: PT OWN MED DRAWER 7, Y5N ONE ×3 (03:24→12:01)
[2017-12-24] MEDS: CYCLOBENZAPRINE HCL 5 MG TABLET PO SCH ×3 (06:33→21:20)
[2017-12-24] MEDS: IBUPROFEN 600 MG TABLET (FP) PO PRN (06:35)
[2017-12-24] MEDS: hydrOXYzine PAMOATE 50 MG CAPSULE (FP) PO PRN ×2 (06:53→21:20)
[2017-12-24] MEDS: BUPRENORPHINE/NALOXONE 2 MG/0.5 MG FILM PACKET SL SCH (07:24)
[2017-12-24] MEDS ORDERED: FLUoxetine HCL 10 MG CAPSULE (FP) ONE (08:43)
[2017-12-24] MEDS ORDERED: FLUoxetine HCL 20 MG CAPSULE (FP) ONE (08:43)
[2017-12-24] MEDS: FLUOXETINE HCL PO SCH (10:16)
[2017-12-24] MEDS: PRENATAL VITAMINS W/ FOLIC ACID TABLET (FP) PO SCH (10:16)
[2017-12-24] MEDS: AMITRIPTYLINE HCL 25 MG TABLET (FP) PO PRN ×3 (10:18→21:20)
[2017-12-24] MEDS: MECLIZINE HCL 12.5 MG TABLET PO PRN (15:39)
[2017-12-24] MEDS: THIAMINE HCL 100 MG TABLET (FP) PO SCH (21:20)
[2017-12-25] MEDS ORDERED: PT OWN MED DRAWER 7, Y5N ONE ×3 (02:59→12:11)
[2017-12-25] MEDS: CYCLOBENZAPRINE HCL 5 MG TABLET PO SCH ×3 (06:22→21:23)
[2017-12-25] MEDS: hydrOXYzine PAMOATE 50 MG CAPSULE (FP) PO PRN ×2 (06:22→21:23)
[2017-12-25] MEDS: IBUPROFEN 600 MG TABLET (FP) PO PRN ×2 (06:22→21:24)
[2017-12-25] MEDS: BUPRENORPHINE/NALOXONE 2 MG/0.5 MG FILM PACKET SL SCH (06:23)
[2017-12-25] MEDS ORDERED: FLUoxetine HCL 10 MG CAPSULE (FP) ONE (09:01)
[2017-12-25] MEDS ORDERED: FLUoxetine HCL 20 MG CAPSULE (FP) ONE (09:01)
[2017-12-25] MEDS: FLUOXETINE HCL PO SCH (10:11)
[2017-12-25] MEDS: PRENATAL VITAMINS W/ FOLIC ACID TABLET (FP) PO SCH (10:11)
[2017-12-25] MEDS: MECLIZINE HCL 12.5 MG TABLET PO PRN (10:57)
[2017-12-25] MEDS: AMITRIPTYLINE HCL 25 MG TABLET (FP) PO PRN (13:05)
[2017-12-25] MEDS: cloNIDine HCL 0.1 MG TABLET PO PRN (17:24)
[2017-12-25] MEDS: THIAMINE HCL 100 MG TABLET (FP) PO SCH (21:23)
[2017-12-26] MEDS ORDERED: PT OWN MED DRAWER 7, Y5N ONE ×3 (06:08→08:53)
[2017-12-26] MEDS: CYCLOBENZAPRINE HCL 5 MG TABLET PO SCH ×3 (06:25→21:25)
[2017-12-26] MEDS: AMITRIPTYLINE HCL 25 MG TABLET (FP) PO PRN ×2 (06:27→21:24)
[2017-12-26] MEDS: IBUPROFEN 600 MG TABLET (FP) PO PRN ×3 (06:28→21:26)
[2017-12-26] MEDS: BUPRENORPHINE/NALOXONE 2 MG/0.5 MG FILM PACKET SL SCH (08:26)
[2017-12-26] MEDS ORDERED: FLUoxetine HCL 20 MG CAPSULE (FP) ONE (08:52)
[2017-12-26] MEDS ORDERED: FLUoxetine HCL 10 MG CAPSULE (FP) ONE (08:52)
[2017-12-26] MEDS: FLUOXETINE HCL PO SCH (11:35)
[2017-12-26] MEDS: PRENATAL VITAMINS W/ FOLIC ACID TABLET (FP) PO SCH (11:35)
[2017-12-26] MEDS: MECLIZINE HCL 12.5 MG TABLET PO PRN (12:47)
[2017-12-26] MEDS: hydrOXYzine PAMOATE 50 MG CAPSULE (FP) PO PRN (18:47)
[2017-12-26] MEDS: THIAMINE HCL 100 MG TABLET (FP) PO SCH (21:24)
[2017-12-26] MEDS: MELATONIN 5 MG TABLETS PO PRN (21:25)
[2017-12-27] MEDS: CYCLOBENZAPRINE HCL 5 MG TABLET PO SCH ×3 (06:43→21:05)
[2017-12-27] MEDS: hydrOXYzine PAMOATE 50 MG CAPSULE (FP) PO PRN ×2 (06:44→21:05)
[2017-12-27] MEDS: IBUPROFEN 600 MG TABLET (FP) PO PRN ×3 (06:44→22:45)
[2017-12-27] MEDS: BUPRENORPHINE/NALOXONE 2 MG/0.5 MG FILM PACKET SL SCH (06:45)
--- NOTE | 2017-12-27 07:59 | PN ---
S Progress Note Note: ASKED TO SEE CLIENT FOR C/O CHEST PAIN. CLIENT STATES PAIN TO MID STERNUM 09/30. DENIES SOB, FEVER, CHILLS, N/V/D, RADIATING PAIN, Last Vital Signs Temp Pulse Resp BP Pulse Ox 98.4 F 89 16 138/91 12/27/17 07:04 12/27/17 07:58 12/27/17 07:58 12/27/17 07:58 CLIENT SEEN AT BED SIDE A/0 X3 NAD HEENT- NCAT CV RRR LUNGS- CTAB O2SAT RA 98% EXTREMITIES GOOD STRENGTH NO WEAKNESS NOTED FROM X4 EKG NORMAL SINUS RHYTHM POSSIBLE LEFT ATRIAL ENLARGEMENT BORDERLINE ECG WHEN COMPARED WITH ECG OF 21-DEC-2017 17:00, NO SIGNIFICANT CHANGE WAS FOUND p- CONT TO MONITOR TYLENOL/ MOTRIN FOR PAIN MYLANTA ORDERED CONSIDER ER EVAL IS EPISODE REPEATS
[2017-12-27] MEDS ORDERED: FLUoxetine HCL 10 MG CAPSULE (FP) ONE ×2 (08:16→08:18)
[2017-12-27] MEDS ORDERED: FLUoxetine HCL 20 MG CAPSULE (FP) ONE (08:18)
[2017-12-27] MEDS: PRENATAL VITAMINS W/ FOLIC ACID TABLET (FP) PO SCH (09:15)
[2017-12-27] MEDS: FLUOXETINE HCL PO SCH (09:15)
[2017-12-27] MEDS: MECLIZINE HCL 12.5 MG TABLET PO PRN (09:16)
[2017-12-27] MEDS ORDERED: PT OWN MED DRAWER 7, Y5N ONE ×2 (11:46→21:41)
[2017-12-27] MEDS: AMITRIPTYLINE HCL 25 MG TABLET (FP) PO PRN (14:57)
[2017-12-27] MEDS: THIAMINE HCL 100 MG TABLET (FP) PO SCH (21:05)
[2017-12-27] MEDS: MELATONIN 5 MG TABLETS PO PRN (21:24)
[2017-12-28] MEDS ORDERED: PT OWN MED DRAWER 7, Y5N ONE (03:28)
[2017-12-28] MEDS: CYCLOBENZAPRINE HCL 5 MG TABLET PO SCH ×3 (06:26→21:25)
[2017-12-28] MEDS: hydrOXYzine PAMOATE 50 MG CAPSULE (FP) PO PRN (06:26)
[2017-12-28] MEDS: IBUPROFEN 600 MG TABLET (FP) PO PRN ×3 (06:27→21:26)
[2017-12-28] MEDS: BUPRENORPHINE/NALOXONE 2 MG/0.5 MG FILM PACKET SL SCH (06:27)
[2017-12-28] MEDS ORDERED: FLUoxetine HCL 10 MG CAPSULE (FP) ONE (08:11)
[2017-12-28] MEDS ORDERED: FLUoxetine HCL 20 MG CAPSULE (FP) ONE (08:12)
[2017-12-28] MEDS: PRENATAL VITAMINS W/ FOLIC ACID TABLET (FP) PO SCH (09:25)
[2017-12-28] MEDS: FLUOXETINE HCL PO SCH (09:25)
[2017-12-28] MEDS: MECLIZINE HCL 12.5 MG TABLET PO PRN (12:57)
[2017-12-28] MEDS: THIAMINE HCL 100 MG TABLET (FP) PO SCH (21:25)
[2017-12-28] MEDS: MELATONIN 5 MG TABLETS PO PRN (21:25)
[2017-12-28] MEDS: AMITRIPTYLINE HCL 25 MG TABLET (FP) PO PRN (21:26)
[2017-12-29] MEDS ORDERED: PT OWN MED DRAWER 7, Y5N ONE (03:13)
[2017-12-29] MEDS: CYCLOBENZAPRINE HCL 5 MG TABLET PO SCH ×2 (06:26→14:59)
[2017-12-29] MEDS: AMITRIPTYLINE HCL 25 MG TABLET (FP) PO PRN ×2 (06:26→15:00)
[2017-12-29] MEDS: MECLIZINE HCL 12.5 MG TABLET PO PRN (06:27)
[2017-12-29] MEDS: BUPRENORPHINE/NALOXONE 2 MG/0.5 MG FILM PACKET SL SCH (06:28)
[2017-12-29 07:01] VITALS: TEMP 97.4
[2017-12-29] MEDS ORDERED: FLUoxetine HCL 10 MG CAPSULE (FP) ONE (08:45)
[2017-12-29] MEDS ORDERED: FLUoxetine HCL 20 MG CAPSULE (FP) ONE (08:46)
[2017-12-29 08:59] VITALS: BP 133/87; PULSE 76
[2017-12-29] MEDS: FLUOXETINE HCL PO SCH (09:43)
[2017-12-29] MEDS: PRENATAL VITAMINS W/ FOLIC ACID TABLET (FP) PO SCH (09:43)
[2017-12-29] MEDS: hydrOXYzine PAMOATE 50 MG CAPSULE (FP) PO PRN (11:06)
--- NOTE | 2017-12-29 15:26 | PN ---
[facility] Progress Note Note: Patient started on Suboxone during this rehab admission. Will give 3 day supply of Suboxone. Patient will be receiving on-going Suboxone treatment/management at the [facility] for [facility].
--- NOTE | 2017-12-31 14:50 | EKG ---
Test Reason : Blood Pressure : / mmHG Vent. Rate : 070 BPM Atrial Rate : 070 BPM P-R Int : 154 ms QRS Dur : 086 ms QT Int : 436 ms P-R-T Axes : 072 077 068 degrees QTc Int : 470 ms POOR DATA QUALITY, INTERPRETATION MAY BE ADVERSELY AFFECTED NORMAL SINUS RHYTHM POSSIBLE LEFT ATRIAL ENLARGEMENT BORDERLINE ECG WHEN COMPARED WITH ECG OF 21-DEC-2017 17:00, NO SIGNIFICANT CHANGE WAS FOUND Confirmed by DOMINGA EDWARDS, DAVIN ([id number]) on 12/31/2017 2:49:59 PM Referred By: Confirmed By:DAVIN ORR MD
== END 2017-12-29 15:57 | disposition home or self-care (01) | DRG 895 ==
LOC: YASAS 09:11 → Y6N 13:26 → Y3E 12-13 12:20
PROVIDERS: ATTEND Psychiatry & Neurology Psychiatry
PROC: HZ2ZZZZ Detoxification Services for Substance Abuse Treatment (ICD-10-PCS; 2017-12-08)
PROC: HZ42ZZZ Group Counseling for Substance Abuse Treatment, Cognitive-Behavioral (ICD-10-PCS; principal; 2017-12-13)
DX: F11.20 Opioid dependence, uncomplicated (principal); F33.9 Major depressive disorder, recurrent, unspecified; F31.9 Bipolar disorder, unspecified; F19.24 Other psychoactive substance dependence with psychoactive substance-induced mood disorder; F41.1 Generalized anxiety disorder; I10 Essential (primary) hypertension; R42 Dizziness and giddiness; M54.5 Low back pain; G89.29 Other chronic pain; M95.0 Acquired deformity of nose
CPT/HCPCS: 36415; 70450-TC; 80053; 80307; 81003; 82962; 85025; 85027; 86593; 87086; 93005; 93010; 99285-25; J0475; J0735; J7030

== ENCOUNTER 2017-12-11 12:49 | Emergency (ER) | payer OTHER ==
--- NOTE | 2017-12-11 12:56 | PDOC ---
History of Present Illness - General Chief Complaint: Weakness Stated Complaint: WEAKNESS Time Seen by Provider: 12/11/17 12:56 - History of Present Illness Initial Comments: 12/11/17 12:57 Ms. 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 Patient reports she presents today as she has never had similar pain before. Patient currently on prozac 30 mg / day and had a valium today as well. The patient denies chest pain, shortness of breath, headache and dizziness. Denies fever, chills, nausea, vomit, diarrhea and constipation. Denies dysuria, frequency, urgency and hematuria. Past History - Past Medical History Allergies/Adverse Reactions: Allergies Allergy/AdvReac Type Severity Reaction Status Date / Time metoclopramide [From Reglan] Allergy Intermediate Verified 12/11/17 12:51 Home Medications: Ambulatory Orders Fluoxetine HCl [Prozac -] 40 mg PO DAILY 12/08/17 Propranolol HCl 20 mg PO TID 12/08/17 Anemia: No Asthma: No Cancer: No Cardiac Disorders: No CVA: No COPD: No CHF: No Dementia: No Diabetes: No GI Disorders: No Disorders: No HTN: Yes Hypercholesterolemia: No Kidney Stones: No Liver Disease: No Seizures: No Thyroid Disease: No - Reproductive History PID: No - Suicide/Smoking/Psychosocial Hx Smoking History: Current some day smoker Have you smoked in the past 12 months: Yes Number of Cigarettes Smoked Daily: 1 Cigars Per Day: 0 'Breaking Loose' booklet given: 12/08/17 Hx Alcohol Use: No Drug/Substance Use Hx: Yes Substance Use Type: Opiates, Tranquilizers Hx Substance Use Treatment: Yes (2017benadictin) Review of Systems - Review of Systems Comments:: 12/11/17 12:57 GENERAL/CONSTITUTIONAL: No fever or chills. No weakness. HEAD, EYES, EARS, NOSE AND THROAT: +Diffuse head pain as described. No change in vision. No discharge. No sore throat. CARDIOVASCULAR: No chest pain or shortness of breath RESPIRATORY: No cough, wheezing, or hemoptysis. GASTROINTESTINAL: No nausea, vomiting, diarrhea or constipation. GENITOURINARY: No dysuria, frequency, or change in urination. MUSCULOSKELETAL: No joint or muscle swelling or pain. No neck or back pain. SKIN: No rash NEUROLOGIC: No headache, vertigo, loss of consciousness, or change in strength/ sensation. ENDOCRINE: No increased thirst. No abnormal weight change HEMATOLOGIC/LYMPHATIC: No anemia, easy bleeding, or history of blood clots. ALLERGIC/IMMUNOLOGIC: No hives or skin allergy. *Physical Exam - Physical Exam Comments: 12/11/17 12:57 GENERAL: +Patient disheveled and subdued in response, however awake, fully oriented, in no acute distress HEAD: No signs of trauma, normocephalic, atraumatic EYES: PERRLA, EOMI, sclera anicteric, conjunctiva clear ENT: Auricles normal inspection, hearing grossly normal, nares patent, oropharynx clear without exudates. Moist mucosa NECK: Normal ROM, supple, no lymphadenopathy, JVD, or masses LUNGS: No distress, speaks full sentences, clear to auscultation bilaterally HEART: Regular rate and rhythm, normal S1 and S2, no murmurs, rubs or gallops, peripheral pulses normal and equal bilaterally. ABDOMEN: Soft, nontender, normoactive bowel sounds. No guarding, no rebound. No masses EXTREMITIES: Normal inspection, Normal range of motion, no edema. No clubbing or cyanosis. NEUROLOGICAL: Cranial nerves II through XII grossly intact. Normal speech, normal gait, no focal sensorimotor deficits SKIN: Warm, Dry, normal turgor, no rashes or lesions noted. ED Treatment Course - LABORATORY CBC & Chemistry Diagram: 12/11/17 14:25 12/11/17 14:25 Medical Decision Making - Medical Decision Making 12/11/17 14:02 Ms. Singh is a 57 yo female w/ pmh as described who presents for evaluation of headache for several days. Patient presents today as pain increased acutely. On examination patient oriented however disheveled and subdued raising concern for intox. Patient will be evaluated with CT, UA, urine culture, labs for further evaluation. 12/11/17 15:35 Patient utox positive for benzos and methadone as expected from history; no other substances found. Upon repeat exam patient more awake; suspect original presentation a result of valium patient had recently taken. 12/11/17 16:39 Patient given tylenol for control of headache. Head CT negative for acute process however fluid in left mastoid air cells found c/w sinus process likely contributing to facial pain. Labs grossly wnl. EKG regular rate, regular rhythm , normal access, mild QT prolongation noted to QT/QTc 442/490, no ST elevations or depressions. Grossly normal EKG. Suspect pain a combination of withdrawal symptoms and sinus congestion. Discharging patient to home w/ instructions to f/ u with PCP as needed. Laboratory Results - last 24 hr 12/11/17 12/11/17 12/11/17 14:25 14:25 14:25 WBC 9.6 RBC 3.39 L Hgb 10.6 L Hct 32.0 L MCV 94.1 MCH 31.1 MCHC 33.1 RDW 15.5 Plt Count 403 MPV 8.3 Absolute Neuts (auto) 4.5 Neutrophils % 47.1 Lymphocytes % 40.9 H Monocytes % 9.0 Eosinophils % 2.0 Basophils % 1.0 Nucleated RBC % 0 Sodium 137 Potassium 5.1 Chloride 105 Carbon Dioxide 25 Anion Gap 7 L BUN 14 Creatinine 0.6 Creat Clearance w eGFR > 60 Random Glucose 107 H Calcium 9.0 Total Bilirubin < 0.1 L AST 31 ALT 46 Alkaline Phosphatase 174 H Total Protein 6.5 Albumin 3.1 L Urine Color Straw Urine Appearance Clear Urine pH 7.0 Ur Specific [place] 1.003 Urine Protein Negative Urine Glucose (UA) Negative Urine Ketones Negative Urine Blood Negative Urine Nitrite Negative Urine Bilirubin Negative Urine Urobilinogen Negative Ur Leukocyte Esterase Negative Opiates Screen Methadone Screen Barbiturate Screen Phencyclidine Screen Ur Amphetamines Screen MDMA (Ecstasy) Screen Benzodiazepines Screen Cocaine Screen U Marijuana (THC) Screen 12/11/17 14:25 WBC RBC Hgb Hct MCV MCH MCHC RDW Plt Count MPV Absolute Neuts (auto) Neutrophils % Lymphocytes % Monocytes % Eosinophils % Basophils % Nucleated RBC % Sodium Potassium Chloride Carbon Dioxide Anion Gap BUN Creatinine Creat Clearance w eGFR Random Glucose Calcium Total Bilirubin AST ALT Alkaline Phosphatase Total Protein Albumin Urine Color Urine Appearance Urine pH Ur Specific [place] Urine Protein Urine Glucose (UA) Urine Ketones Urine Blood Urine Nitrite Urine Bilirubin Urine Urobilinogen Ur Leukocyte Esterase Opiates Screen Negative Methadone Screen Positive A* Barbiturate Screen Negative Phencyclidine Screen Negative Ur Amphetamines Screen Negative MDMA (Ecstasy) Screen Negative Benzodiazepines Screen Positive A* Cocaine Screen Negative U Marijuana (THC) Screen Negative *DC/Admit/Observation/Transfer Diagnosis at time of Disposition: Headache Qualifiers: Headache type: unspecified Headache chronicity pattern: unspecified pattern Intractability: not intractable Qualified Code(s): R51 - Headache - Discharge Dispostion Disposition: HOME - Referrals - Patient Instructions Printed Discharge Instructions: DI for Sinus Headache Additional Instructions: You were evaluated today in the ER for your headache. CT was performed which was negative for emergent process however revealed fluid in your sinuses which may be contributing to your pain. Please follow instructions listed on attached paper and follow-up with primary care provider for further evaluation next week as needed. Return to ER if any increase in pain, fever, chills, altered mental status, or other concerning symptoms. - Post Discharge Activity
[2017-12-11 13:23] VITALS: BMI 22.1
[2017-12-11] MEDS ORDERED: SODIUM CHLORIDE 1,000 ML IV STA (13:52)
[2017-12-11 14:38] LABS: URINE APPEARANCE CLEAR; URINE BILIRUBIN NEGATIVE (<2.0 mg/dL); URINE COLOR STRAW; URINE GLUCOSE (UA) NEGATIVE (NEGATIVE); URINE KETONE NEGATIVE (NEGATIVE); URINE LEUK ESTERASE NEGATIVE (NEGATIVE); URINE NITRITE NEGATIVE (NEGATIVE); URINE PROTEIN NEGATIVE (NEGATIVE); URINE UROBILINOGEN NEGATIVE mg/dL (0.2-1.0)
[2017-12-11 14:56] LABS: HEMOGLOBIN 10.6 GM/dL (10.7-15.3); LYMPH % 40.9 % (8-40); MCH 31.1 pg (25.7-33.7); MCHC 33.1 g/dl (32.0-36.0); MEAN CELL VOLUME 94.1 fl (80-96); MEAN PLT VOLUME 8.3 fl (7.5-11.1); NEUT % 47.1 % (42.8-82.8); PLATELET COUNT 403 K/MM3 (134-434); RBC 3.39 M/mm3 (3.60-5.2); RDW 15.5 % (11.6-15.6); WHITE BLOOD COUNT 9.6 K/mm3 (4.0-10.0)
[2017-12-11 15:12] LABS: ALBUMIN 3.1 g/dl (3.4-5.0); ALK PHOS 174 U/L (45-117); ANION GAP 7 MMOL/L (8-16); BILIRUBIN,TOTAL < 0.1 mg/dL (0.2-1); BLOOD UREA NITROGEN 14 mg/dL (7-18); CHLORIDE 105 mmol/L (98-107); CO2 25 mmol/L (21-32); CREATININE 0.6 mg/dL (0.55-1.3); GLUCOSE,RANDOM 107 mg/dL (74-106); POTASSIUM 5.1 mmol/L (3.5-5.1); SGOT/AST 31 U/L (15-37); SGPT/ALT 46 U/L (13-61); SODIUM 137 mmol/L (136-145); TOT PROT 6.5 g/dl (6.4-8.2)
[2017-12-11 15:15] LABS: COCAINE, UR NEGATIVE ng/ml (CUTOFF=300); OPIATES, URI NEGATIVE ng/ml (CUTOFF=300); PHENCYCLIDINE,URINE NEGATIVE ng/ml (CUTOFF=25); URINE AMPHETAMINES NEGATIVE ng/ml (CUTOFF=500); URINE BARBITURATES NEGATIVE ng/ml (CUTOFF=200)
[2017-12-11 15:27] LABS: METHADONE, UR POSITIVE ng/ml (CUTOFF=300); URINE BENZODIAZEPINES POSITIVE ng/ml (CUTOFF=200)
[2017-12-11] MEDS ORDERED: cloNIDine HCL 0.1 MG TABLET PO ONE (15:27)
[2017-12-11] MEDS ORDERED: ACETAMINOPHEN 500 MG TABLET (FP) PO ONE (15:28)
--- NOTE | 2017-12-11 15:28 | PDOC ---
Attending Attestation - Resident Resident Name: Kartik Saleh - ED Attending Attestation I have performed the following: I have examined & evaluated the patient, The case was reviewed & discussed with the resident, I agree w/resident's findings & plan - HPI HPI: 12/11/17 17:33 57 yo female w/ pmh of HTN and prison opioid abuse (oxycodone, approx. 40mg daily) presenting from Detox with headache x 2-3 days. Patient reports she presents today as she has never had similar pain before. Patient currently on prozac 30 mg / day and had a valium today as well. no trauma. at detox for opioid w/d sx. - Physicial Exam PE: 12/11/17 17:33 NAD, alert, mentating appropriately, AAO x3. MMM, nl conjunctiva, anicteric; neck supple. lungs clear, RRR, abdomen soft nontender. MORAN x4, no focal neuro deficits. No peripheral edema. normal color for ethnicity, WWP. 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 40mg daily) presenting from Detox with headache x 2-3 days. Patient reports she presents today as she has never had similar pain before. Patient currently on prozac 30 mg / day and had a valium today as well. no trauma. at detox for opioid w/d sx. DDx. headache, migraine, opioid w/d syndrome. vitals wnl, no fever. labs and lytes wnl. preg test neg. EKG normal sinus rhythm, +prolonged ME interval. narrow QRS, ST and T wave segments and morphology normal. Nonspecific T wave abnormalities in flattening wave in AVL. Utox positive for methadone/benzos (did receive valium earlier) CT head neg for intra cranial abnormalities, central atrophy without definitive e/o NPH. pain control with fluids, toradol, tylenol. no antiemetics given ME prolongation. given clonidine for w/d symptoms from opioid. DC back to [facility] for further management of her opioid w/d and headache with h/o migraines.. return precautions given. return via ambulance to the inpatient detox center 12/11/17 17:34 Heart Score/ECG Review - ECG Impressions Comment:: 12/11/17 16:40 EKG normal sinus rhythm, +prolonged ME interval. narrow QRS, ST and T wave segments and morphology normal. Nonspecific T wave abnormalities in flattening wave in AVL.
[2017-12-11] MEDS ORDERED: KETOROLAC TROMETHAMINE 15 MG/ML VIAL IVPUSH ONE (16:22)
[2017-12-11] MEDS ORDERED: ACETAMINOPHEN 325 MG TABLET (FP) ONE (16:56)
[2017-12-11] MEDS ORDERED: cloNIDine HCL 0.1 MG TABLET ONE (16:56)
[2017-12-11] MEDS ORDERED: KETOROLAC TROMETHAMINE 15 MG/ML VIAL ONE (16:56)
[2017-12-11 18:42] VITALS: BP 147/89; PULSE 72; TEMP 98
--- NOTE | 2017-12-12 08:07 | EKG ---
Test Reason : Blood Pressure : / mmHG Vent. Rate : 074 BPM Atrial Rate : 074 BPM P-R Int : 166 ms QRS Dur : 082 ms QT Int : 442 ms P-R-T Axes : 063 075 065 degrees QTc Int : 490 ms NORMAL SINUS RHYTHM POSSIBLE LEFT ATRIAL ENLARGEMENT PROLONGED QT ABNORMAL ECG WHEN COMPARED WITH ECG OF 08-DEC-2017 13:46, NO SIGNIFICANT CHANGE WAS FOUND Confirmed by DOMINGA EDWARDS, DAVIN ([id number]) on 12/12/2017 8:06:38 AM Referred By: Confirmed By:DAVIN ORR MD
== END 2017-12-11 19:02 | disposition home or self-care (01) ==
LOC: JER 12:49
PROC: 3E0333Z Introduction of Anti-inflammatory into Peripheral Vein, Percutaneous Approach (ICD-10-PCS; principal; 2017-12-11)
PROC: 3E0337Z Introduction of Electrolytic and Water Balance Substance into Peripheral Vein, Percutaneous Approach (ICD-10-PCS; 2017-12-11)
DX: R51 Headache (principal); I10 Essential (primary) hypertension; F17.210 Nicotine dependence, cigarettes, uncomplicated; F11.90 Opioid use, unspecified, uncomplicated
CPT/HCPCS: 36415; 70450-TC; 80053; 80307; 81003; 85025; 87086; 93005; 93010; 99285-25; J0735; J7030